=== PATIENT | female | born 1975 | race Caucasian/White ===

== ENCOUNTER 2016-08-06 16:14 | Emergency (ER) | payer OTHER ==
[~2016-08-06] VITALS: Ht 162.6 cm; Wt 54.4 kg
[2016-08-06] MEDS ORDERED: LIDODERM 5% P1 PATCH TD (18:43)
[2016-08-06 19:07] VITALS: BP 145/95
[2016-08-06] MEDS ORDERED: UNABLE TO OBTAIN PO (19:07)
== END 2016-08-06 19:00 | disposition home or self-care (01) ==
LOC: EME 16:14
DX: M54.5 Low back pain (principal); F17.200 Nicotine dependence, unspecified, uncomplicated
CPT/HCPCS: 72100; 99281; 99285; J1885